=== PATIENT | female | born 1975 | race Caucasian/White ===

== ENCOUNTER 2025-04-28 10:35 | Day surgery (SDC) | payer OTHER, SELFPAY ==
[2025-04-24 13:42] VITALS: BMI 30.5
[2025-04-28] VITALS (12 sets, daily range): BP systolic 124–148; BP diastolic 61–73; PULSE 75–93; RESP 12–20; TEMP 36.2–36.3; O2SAT 92–98; BMI 30.5
[2025-04-28] MEDS: ACETAMINOPHEN 325 MG TABLET 975 MG PO (11:07)
[2025-04-28] MEDS: LACTATED RINGERS 1,000 ML 42 ML IV ×2 (11:08→14:20)
[2025-04-28] MEDS: SCOPOLAMINE 1 PATCH TOP (11:08)
--- NOTE | 2025-04-28 12:49 | PM.PREOP ---
Pre-operative Note Interval Note History & Physical reviewed/Exam performed by Physician: Yes Changes to H&P: No
[2025-04-28] MEDS: CEFAZOLIN 2 GM/100 ML PREMIX 100 ML IV (13:30)
--- NOTE | 2025-04-28 13:53 | SUR.OPER ---
Supine on padded OR bed, head on pillow, non operative arm secured on padded arm boards at <90 degrees abduction, operative arm on padded OR arm board, legs uncrossed, safety belt at thigh and torso, tape over blanket over lower legs.
[2025-04-28] MEDS: BUPIVACAINE 0.25% (PF) VIAL 30 ML INJ (13:58)
[2025-04-28] MEDS: HYDROMORPHONE 1 MG INJ IV ×2 (16:22→16:32)
[2025-04-28] MEDS: hydrOXYzine 50 MG/ML INJ 25 MG IM (16:22)
[2025-04-28] MEDS: OXYCODONE IR 5 MG TABLET PO ×2 (16:25→17:11)
--- NOTE | 2025-04-28 16:44 | PM.OP.1 ---
Operative Date/Time/Diagnoses Date of procedure: 04/28/25 Time of procedure: 16:57 Pre-op diagnosis: Right Distal Radius Fracture Post-op diagnosis: same Procedure & Clinicians Procedure: RIGHT Distal Radius Same procedure(s) as scheduled: Yes Surgeon: Clarence Acosta Conductor Sleeping Car: Racheal Garcia Anesthesia Type: General Operative Notes Findings: Unstable comminuted intra articular distal radius fracture Closure Type: primary Specimen(s): none sent Applied: other Estimated Blood Loss (mL): 10 Blood products transfused: none Tourniquet time (min): 120 Procedure in detail: Op Note Date of Procedure: April 28, 2025 Indication For Surgery: Right Displaced Distal Radius Fracture outside of tolerances. Pre-Op Diagnosis: Right Displaced Distal Radius Fracture Post-Op Diagnosis: LUCY Procedure(s): Open Reduction and Internal Fixation of the Closed Distal Radius Fracture Surgeon: Clarence Acosta MD Conductor Sleeping Car in OR: ISMAEL Alba Physician Conductor Sleeping Car was used throughout the entirety of the case. ?This operation could not have been safely performed (without compromising the technical results or length of the procedure) without the assistance of a skilled assistant plant manager. A assistant plant manager was medically necessary for room set up, patient positioning, draping, retraction, visualization, reduction, fixation and closure. ?They were essential ?for the success of the case. Anesthesia Type: General EBL: 10cc Specimens Removed: None Complications: None Implants/Grafts: [employer] Volar Plate and Screws; 0.062 K wires x 2 Drains: No lines, drains, or airways are recorded for this episode. Findings: Displaced distal radius fracture, reduced and fixed Narrative: The patient was met in the pre-operative hold area. Consent was verified. Operative extremity was signed. All questions were answered. They were brought to the operating room and surrendered to anesthesia. Once general anesthesia was obtained they were prepped and draped. A time out was performed. An esmarch was used to exsanguinate the limb and the tourniquet was elevated. A trans FCR approach was used. Once through the tendon sheath floor digital dissection was brought down to the pronator quadratus. This was freed from the bone. The brachioradialis was released from the styloid without damaging surrounding tendons. On examination of the fracture it was determined that she had 4 fracture fragments. There was the transverse radial shaft fracture, radial styloid fragment, volar and dorsal fragments of the distal ulnar aspect. We were unable to reduce these fragments has a hole and required to individually reduce these fragments. I started with the radial styloid and distal dorsal ulnar fragment. These were held together with a [id number] reduction and a K-wire was sent from the radial styloid ulnarly. This held the reduction nicely and the joint line was confirmed on AP and lateral fluoro. At this point we turned our attention to reducing the radial styloid fragment to the radial shaft. This was highly unstable. We were unable to have the remaining volar ulnar fragment reduced while we reduced the radial shaft and radial styloid fragments. A volar plate was chosen and it was fixed loosely to the radial shaft. While holding traction and ulnar deviation we fixed 2 screws into the radial styloid fragment. This held the reduction however remains slightly short. We then filled the remaining locking screws in the volar plate in order to hold all of the distal fragments together. Once the plate was locked to the distal fragment we are then able to pull full traction and fixed the cortical screws proximally. This held the radial cortex anatomically. Radial height, inclination, and tilt were restored. Fluroro was used throughout this process. 2 additional plate screws were then placed proximally. Final images were taken at various angles to confirm all distal screws were not protruding from the dorsal distal radius. Prior to the case the patient's left wrist was examined. She was stable except she had mild instability while in pronation. After the fixation of the right wrist she was found to be unstable in pronation, neutral and supination. We decided to pin the DRUJ from ulnar to radial. We placed 2 K-wires. The wound was irrigated copiously. The fascia was closed with 2-0 vicryl and the skin with 3-0 nylon. 30cc of 0.5% marcaine without epinephrine was placed. A sterile dressing and splint was applied. Postoperative Plan: Volar resting splint until 2 weeks. Xrays. Sutures out Short Arm Cast weeks 4, xrays -after 6 weeks of immobilization she will discontinue the cast and have her pins removed Removable brace & ROM weeks 4-8, xrays Advance weight bearing at 8 weeks if things are going well. Foot on the ground activities from 8-12 weeks. Clarence Acosta MD Complications: none
== END 2025-04-28 17:31 | disposition home or self-care (01) ==
PROVIDERS: Referring Provider Orthopaedic Surgery; Visit Provider Orthopaedic Surgery
PROC: (CPT 25609; principal; 2025-04-28 11:45)
DX: S52.571A Other intraarticular fracture of lower end of right radius, initial encounter for closed fracture (principal); V18.0XXA Pedal cycle driver injured in noncollision transport accident in nontraffic accident, initial encounter
CPT/HCPCS: 25609; C1713; J0690; J1100; J1171; J2250; J2405; J2704; J3010; J3410